=== PATIENT | male | born 1970 | race Caucasian/White ===

== ENCOUNTER → 2018-09-14 08:15 | Outpatient (CLI) | payer OTHER, SELFPAY ==
[2018-09-14 09:39] LABS: Hematocrit 42.3 % (41-53); Hemoglobin 14.1 g/dL (13.5-17.5); Mean Corpuscular HGB Conc 33.3 % (30-36); Mean Corpuscular Hemoglobin 27.3 PG (26-34); Mean Corpuscular Volume 81.9 fL (80-100); Platelet Count 196 X10^3/uL (150-400); Red Blood Cell Count 5.17 X10^6/uL (4.5-5.9); Red Cell Distribution Width 15.6 % (11.6-14.8); White Blood Cell Count 5.6 X10^3/uL (4.5-11.0)
[2018-09-14 09:47] LABS: Hemoglobin A1C% w Est Avg Glu 5.6 % (4.0-6.0)
[2018-09-14 09:56] LABS: Alanine Aminotransferase 44 IU/L (21-72); Albumin 3.6 g/dL (3.5-5.0); Albumin Globulin Ratio 1.2 (1.0-2.8); Alkaline Phosphatase 82 U/L (38-126); Aspartate Aminotransferase 27 IU/L (17-59); Bilirubin Total 0.6 mg/dL (0.2-1.3); Blood Urea Nitrogen 16 mg/dL (9-20); Calcium 8.6 mg/dL (8.4-10.2); Carbon Dioxide 27 mmol/L (22-32); Chloride 107 mmol/L (98-107); Cholesterol 229 mg/dL (140-199); Estimated Glomerular Filt Rate > 60.0 mL/min (>60); Globulin 2.9 g/dL (1.7-4.1); Glucose 98 mg/dL (70-100); HDL Cholesterol 48 mg/dL (40-60); HEMOLYSIS < 15 (0-50); LDL Cholesterol Calculated 158 mg/dL (<100); Potassium 4.2 mmol/L (3.4-5.1); Sodium 140 mmol/L (137-145); Total Protein 6.5 g/dL (6.3-8.2); Triglycerides 117 mg/dL (35-150)
[2018-09-14 10:58] LABS: Neutrophils Absolute Manual 3528 /uL (3000-5900); Total Cells Counted 100
[2018-09-14 10:59] LABS: Anisocytosis 1+
== END ==
PROVIDERS: Family Provider Family Medicine; PCP Family Medicine; Visit Provider Family Medicine
DX: E78.5 Hyperlipidemia, unspecified (principal); I10 Essential (primary) hypertension; E66.9 Obesity, unspecified
CPT/HCPCS: 36415; 80053; 80061; 83036; 85025

== ENCOUNTER → 2020-11-10 10:00 | Outpatient (CLI) | payer OTHER, SELFPAY ==
[2020-11-10 10:58] LABS: COVID19 -Nasal RAPID Negative (Negative)
== END ==
PROVIDERS: Family Provider Family Medicine; PCP Family Medicine; Visit Provider Physician Assistant
DX: R09.81 Nasal congestion (principal)
CPT/HCPCS: 87635

== ENCOUNTER → 2021-05-16 08:23 | Outpatient (CLI) | payer OTHER, SELFPAY ==
[2021-05-16 10:29] LABS: Add Manual Diff / Slide Review NO; Basophils Absolute Auto 0 /uL (0-100); Basophils Percent Auto 0.8 % (0-2); Eosinophils Absolute Auto 100 /uL (0-450); Eosinophils Percent Auto 1.3 % (2-4); Hematocrit 43.5 % (41-53); Hemoglobin 14.6 g/dL (13.5-17.5); Lymphocytes Absolute Auto 1400 /uL (1100-4500); Lymphocytes Percent Auto 25.9 % (25-40); Mean Corpuscular HGB Conc 33.6 % (30-36); Mean Corpuscular Hemoglobin 27.1 PG (26-34); Mean Corpuscular Volume 80.6 fL (80-100); Monocytes Absolute Auto 500 /uL (0-900); Monocytes Percent Auto 8.6 % (3-14); Neutrophils Absolute Auto 3400 /uL (1500-7000); Neutrophils Percent Auto 63.4 % (50-75); Platelet Count 215 X10^3/uL (150-400); Red Blood Cell Count 5.39 X10^6/uL (4.5-5.9); Red Cell Distribution Width 16.8 % (11.6-14.8); White Blood Cell Count 5.4 X10^3/uL (4.5-11.0)
[2021-05-16 13:39] LABS: Alanine Aminotransferase 32 IU/L (<50); Albumin 3.9 g/dL (3.5-5.0); Albumin Globulin Ratio 1.3 (1.0-2.8); Alkaline Phosphatase 76 U/L (38-126); Aspartate Aminotransferase 27 IU/L (17-59); BUN Creatinine Ratio 14.6 (6-22); Bilirubin Total 0.6 mg/dL (0.2-1.3); Blood Urea Nitrogen 14 mg/dL (9-20); Calcium 9.1 mg/dL (8.4-10.2); Carbon Dioxide 25 mmol/L (22-32); Chloride 109 mmol/L (98-107); Cholesterol 276 mg/dL (140-199); Estimated Glomerular Filt Rate > 60.0 mL/min (>60); Glucose 102 mg/dL (70-100); HDL Cholesterol 63 mg/dL (40-60); HEMOLYSIS < 15 (0-50); LDL Cholesterol Calculated 201 mg/dL (<100); Potassium 3.8 mmol/L (3.4-5.1); Sodium 141 mmol/L (137-145); Total Protein 6.9 g/dL (6.3-8.2); Triglycerides 60 mg/dL (35-150)
[2021-05-16 14:07] LABS: Prostate Specific Antigen Scrn 1.67 ng/mL (0.1-4.0)
[2021-05-16 14:08] LABS: Thyroid Stimulating Hormone 0.838 uIU/mL (0.47-4.68)
[2021-05-16 16:54] LABS: Creatinine Urine Random 84.9 mg/dL
== END ==
PROVIDERS: Family Provider Family Medicine; PCP Family Medicine; Referring Provider Physician Assistant; Visit Provider Physician Assistant
DX: I10 Essential (primary) hypertension (principal); E78.5 Hyperlipidemia, unspecified; Z13.0 Encounter for screening for diseases of the blood and blood-forming organs and certain disorders involving the immune mechanism; Z12.5 Encounter for screening for malignant neoplasm of prostate
CPT/HCPCS: 36415; 80053; 80061; 82043; 82570; 84443; 85025; G0103

== ENCOUNTER → 2021-06-05 10:36 | Outpatient (CLI) | payer OTHER, SELFPAY ==
[2021-06-05 11:02] LABS: COVID19 -Nasal RAPID POSITIVE (Negative)
== END ==
PROVIDERS: Family Provider Family Medicine; PCP Family Medicine; Referring Provider Physician Assistant; Visit Provider Physician Assistant
DX: U07.1 COVID-19 (principal); Z20.822 Contact with and (suspected) exposure to COVID-19; R05.9 Cough, unspecified
CPT/HCPCS: 87635

== ENCOUNTER → 2021-08-03 08:45 | Outpatient (CLI) | payer OTHER, SELFPAY ==
--- NOTE | 2021-08-03 08:47 | DI.RAD.S_ITS ---
PROCEDURE: XR CHEST 2V INDICATIONS: Heart murmur; HTN TECHNIQUE: 2 views of the chest were acquired. COMPARISON: None. FINDINGS: Surgical changes and devices: None. Lungs and pleura: Lungs are clear. No pleural effusions or pneumothorax. Mediastinum: Mediastinal contours are normal. Heart size is normal. Bones and chest wall: No suspicious bony abnormalities. Soft tissues appear unremarkable. IMPRESSION: No acute cardiopulmonary disease. Dictated by: Parish Kovacs LOCATED [facility]IN [facility] Interpreted: Eric Sanchez MD on 08/03/2021 at 16:12 Transcribed by: LEONARDA on 08/03/2021 at 16:12 Approved by: Eric Sanchez M.D. on 08/03/2021 at 17:18
[2021-08-03 10:15] LABS: Cholesterol 259 mg/dL (140-199); Creatinine Urine Random 151.5 mg/dL; HDL Cholesterol 45 mg/dL (40-60); LDL Cholesterol Calculated 181 mg/dL (<100); Triglycerides 166 mg/dL (35-150)
[2021-08-03 10:19] LABS: Microalbumi Creatinin Ratio Ur 41.5 ug/mg CR (<30); Microalbumin Urine Random 6.3 mg/dL (0-1.6)
== END ==
PROVIDERS: Family Provider Family Medicine; PCP Family Medicine; Referring Provider Physician Assistant; Visit Provider Physician Assistant
DX: R01.1 Cardiac murmur, unspecified (principal); I10 Essential (primary) hypertension; E78.5 Hyperlipidemia, unspecified; R80.9 Proteinuria, unspecified
CPT/HCPCS: 36415; 71046; 80061; 82043; 82570

== ENCOUNTER → 2021-09-08 08:08 | Outpatient (CLI) | payer OTHER, SELFPAY ==
--- NOTE | 2021-09-08 08:09 | DI.ECHO.S_ITS ---
[facility]---------+ [facility] +---------+ : : [address] : : : : [id number] : : : : Phone: [phone]+ Echocardiogram Report + + :Name: JABIER SILVA Study Date: 09/08/2021 Height: 66 in : :[facility] ReadingLocation: Weight: 290 lb : : Gender: Male BSA: 2.3 m2 : :: 1970 Age: 51 yrs BP: 172/98 mmHg: :Reason For Study: HEART MURMUR : :Ordering Physician: JOSHUA, : :BESSY Youssef Performed By: Gloria Arana : :Referring: BESSY LEWIS : + + Interpretation Summary 1) Milldy increased left ventricular thickness with normal size, normal wall motion, and normal systolic function (EF 60-65%). 2) Normal right ventricular size and function. 3) Diastolic parameters suggest a pseudonormalization pattern, consistent with probable elevated filling pressures. 4) There is mild aortic stenosis (valve area 1.9cm2, mean gradient 11mmHg). 6) Hypertension present during the study (BP 172/98mmHg). 7) No prior Echo available for comparison. Procedure: A two-dimensional transthoracic echocardiogram with color flow and Doppler was performed. The study quality was technically difficult. There is no prior echocardiogram noted for this patient. The heart rate ranged between 79-95 bpm during the study. Left Ventricle: The left ventricle is normal in size. There is mild concentric left ventricular hypertrophy. The ejection fraction is estimated to be 60-65%. Left ventricular systolic function appears normal without focal wall motion abnormalities. Diastolic parameters suggest a pseudonormalization pattern, consistent with probable elevated filling pressures. Right Ventricle: The right ventricle is normal in size and function. Atria: The left atrium is moderately dilated. Right atrial size is normal. There is no Doppler evidence for an interatrial shunt. Mitral Valve: There is mild mitral annular calcification. The mitral valve leaflets appear mildly thickened, but open well. There is no mitral regurgitation noted. Aortic Valve: The aortic valve is not well visualized. There is moderate aortic valve sclerosis. The aortic valve is slightly calcified. The peak aortic velocity is 2.1 m/sec. The aortic valve mean gradient is 11 mmHg. The calculated aortic valve area is 1.9 cm2. There is mild aortic stenosis. No aortic regurgitation is present. Tricuspid Valve: The tricuspid valve is normal in structure and function. No tricuspid regurgitation. Pulmonary artery pressures cannot be estimated because of the lack of a measurable TR jet velocity but the IVC suggests a CVP of around 3 mmHg. Pulmonic Valve: The pulmonic valve is not well seen, but is grossly normal. There is no pulmonic valvular regurgitation. Great Vessels: The aortic root is normal size. The ascending aorta is normal in size. The IVC is of normal diameter and collapses greater than 50% with a sniff. This suggests a low right atrial pressure of 3 mm Hg. Pericardium/ Pleura There is no pericardial effusion. There is no pleural effusion. MMode/2D Measurements & Calculations LVIDd: 5.5 cm LVOT diam: 2.2 cm LVIDs: 3.8 cm Ao root diam: 3.3 cm FS: 31.1 % asc Aorta Diam: 3.6 cm IVSd: 1.3 cm Ao Arch Diam (Prox Trans): 3.4 cm LVPWd: 1.2 cm LV johnson. diameter/BSA (cm/m^2): 2.3 LV sys. diameter/BSA (cm/m^2): 1.6 LA A2 area: 21.2 cm2 RA long axis: 5.3 cm LA A4 area: 24.8 cm2 RA area: 18.3 cm2 LA length (vol): 5.5 cm RA vol: 53.5 ml LA vol: 81.5 ml RA : 22.8 ml/m2 LA vol index: 34.8 ml/m2 IVC diam: 1.6 cm RVD1 (basal): 3.8 cm RVD2 (mid): 3.1 cm TAPSE: 2.4 cm Doppler Measurements & Calculations Ao V2 max: 210.2 cm/sec LVOT Max Michael: 107.3 cm/sec Ao V2 mean: 151.9 cm/sec LV V1 max P.6 mmHg Ao max P.7 mmHg LV V1 VTI: 19.3 cm Ao mean P.1 mmHg SATISH(I,D): 1.9 cm2 Ao V2 VTI: 38.1 cm SATISH(V,D): 1.9 cm2 sev ratio: 0.51 SATISH indexed to BSA (cm^2/m^2): 0.82 MV E max michael: 102.9 cm/sec PA V2 max: 103.9 cm/sec MV A max michael: 86.1 cm/sec PA V2 mean: 76.7 cm/sec MV E/A: 1.2 PA mean P.6 mmHg Med Peak E' Imchael: 6.8 cm/sec PA pr(Accel): 24.2 mmHg E/E' med: 15.1 Lat Peak E' Michael: 8.6 cm/sec E/E' lat: 12.0 E/e' average: 13.5 MV dec time: 0.17 sec SV(LVOT): 73.0 ml Reading Physician:10:15 AM
== END ==
PROVIDERS: Family Provider Family Medicine; PCP Family Medicine; Referring Provider Physician Assistant; Visit Provider Physician Assistant
DX: I35.0 Nonrheumatic aortic (valve) stenosis (principal); R01.1 Cardiac murmur, unspecified; I10 Essential (primary) hypertension
CPT/HCPCS: 93306

== ENCOUNTER → 2021-09-13 10:28 | Outpatient (CLI) | payer OTHER, SELFPAY ==
[2021-09-13 12:12] LABS: NT-proBNP (BNP-Adult 18+) 126 pg/mL (<125)
== END ==
PROVIDERS: Family Provider Family Medicine; PCP Family Medicine; Referring Provider Physician Assistant; Visit Provider Physician Assistant
DX: I10 Essential (primary) hypertension (principal); R06.00 Dyspnea, unspecified; R60.9 Edema, unspecified
CPT/HCPCS: 36415; 83880

== ENCOUNTER → 2021-10-26 09:41 | Outpatient (CLI) | payer OTHER, MEDICAID, SELFPAY ==
[2021-10-26 10:54] LABS: BUN Creatinine Ratio 17.4 (6-22); Blood Urea Nitrogen 15 mg/dL (9-20); Calcium 8.4 mg/dL (8.4-10.2); Carbon Dioxide 26 mmol/L (22-32); Chloride 107 mmol/L (98-107); Cholesterol 235 mg/dL (140-199); Estimated Glomerular Filt Rate > 60 mL/min (>60); Glucose 124 mg/dL (70-100); HDL Cholesterol 66 mg/dL (40-60); HEMOLYSIS < 15 (0-50); LDL Cholesterol Calculated 155 mg/dL (<100); Potassium 4.3 mmol/L (3.4-5.1); Sodium 137 mmol/L (137-145); Triglycerides 69 mg/dL (35-150)
== END ==
PROVIDERS: Family Provider Family Medicine; PCP Family Medicine; Referring Provider Physician Assistant; Visit Provider Physician Assistant
DX: E78.5 Hyperlipidemia, unspecified (principal); I10 Essential (primary) hypertension
CPT/HCPCS: 36415; 80048; 80061

== ENCOUNTER → 2021-11-08 10:12 | Outpatient (CLI) | payer OTHER, SELFPAY ==
[2021-11-08 11:49] LABS: COVID19 -Nasal RAPID Negative (Negative)
== END ==
PROVIDERS: Family Provider Family Medicine; PCP Family Medicine; Referring Provider Physician Assistant; Visit Provider Physician Assistant
DX: R06.00 Dyspnea, unspecified (principal); I10 Essential (primary) hypertension; E78.5 Hyperlipidemia, unspecified; R01.1 Cardiac murmur, unspecified; R60.9 Edema, unspecified; I35.0 Nonrheumatic aortic (valve) stenosis; Z20.822 Contact with and (suspected) exposure to COVID-19
CPT/HCPCS: 87635

== ENCOUNTER → 2021-11-09 10:25 | Outpatient (CLI) | payer OTHER, MEDICAID, SELFPAY ==
--- NOTE | 2021-11-09 | DI.NM.S_ITS ---
PROCEDURE: NM KALANI PERF SPECT R&S PHARM Rest and pharmacological stress myocardial perfusion SPECT with gated imaging and ejection fraction RADIOPHARMACEUTICAL: 23.8 mCi Tc-99m tetrafosmin IV at rest and 25.6 mCi Tc-99m tetrafosmin IV at peak effect of pharmacological stress. [id number] was performed. INDICATIONS: Dyspnea, unspecified TECHNIQUE: Radiopharmaceutical was injected at peak stress test, and also at rest. SPECT images were obtained. SPECT myocardial perfusion images were displayed in short axis, horizontal long axis, and vertical long axis views. Gated images were reviewed using [employer] software. COMPARISON: None. CARDIAC STRESS: A pharmacologic stress test was performed under the supervision of an attending staff, using an infusion of regadenoson. Hemodynamic data: There is normal blood pressure and heart rate response to pharmacologic stress. Symptoms: The patient denied anginal chest pain. EKG: No diagnostic changes of ischemia; no ectopy. FINDINGS: Raw data: There is good myocardial uptake of radiotracer. No significant motion artifacts. Pwmt-ut-zswnn ratio is 0.33 (normal is less than 0.38 for tetrafosmin tracer). Left ventricle function: Gated images demonstrate normal left ventricular wall thickening. No segmental wall motion abnormalities. No transient ischemic dilation; TID is 1.08 (normal less than 1.3). Left ventricle resting end diastolic volume is 198 mL. Left ventricle stress ejection fraction is 56%; normal range is above 45%. Myocardial perfusion: There is a large size, moderate intensity fixed inferior and apical wall defect with preserved wall motion making this most consistent with diaphragmatic attenuation. No evidence of ischemia or scar. IMPRESSION: Low risk stress test. No evidence of pharmacologic induced ischemia or scar. Increased left ventricular end-diastolic volume of 198 mL with preserved ejection fraction. Dictated by: Cynthia Garcia D.O. on 11/10/2021 at 16:50 Approved by: Cynthia Garcia D.O. on 11/10/2021 at 16:55
--- NOTE | 2021-11-09 11:45 | PM.TREADMILL ---
Cardiac Stress Test Report Referral & Results Date Patient Seen: 11/09/21 Time Patient Seen: 11:45 Requesting provider: Hailee Celis Indication: Dyspnea, mild aortic stenosis Rest ECG: Sinus rhythm with borderline intraventricular conduction delay Procedure Note: After Lexiscan injection had minimal dyspnea but no chest discomfort No significant ST changes No ectopy Hypertensive at baseline Impression: Normal lexiscan stress test Nuclear images pending. Please note: Actual ECG tracings can be found in the PACS system.
== END ==
PROVIDERS: Family Provider Family Medicine; PCP Family Medicine; Referring Provider Physician Assistant; Visit Provider Physician Assistant
DX: R06.00 Dyspnea, unspecified (principal); I35.0 Nonrheumatic aortic (valve) stenosis
CPT/HCPCS: 78452; 93017; A9502; J2785

== ENCOUNTER → 2022-01-26 09:49 | Outpatient (CLI) | payer OTHER, MEDICAID, SELFPAY ==
--- NOTE | 2022-01-26 09:52 | DI.RAD.S_ITS ---
PROCEDURE: XR CHEST 2V INDICATIONS: Dyspnea on exertion, concern for CHF TECHNIQUE: 2 views of the chest were acquired. COMPARISON: [facility], CR, XR CHEST 2V, 08/03/2021, 8:42. FINDINGS: Surgical changes and devices: None. Lungs and pleura: Lungs are clear. No pleural effusions or pneumothorax. Mediastinum: Mediastinal contours are normal. Heart size is normal. Bones and chest wall: No suspicious bony abnormalities. Soft tissues appear unremarkable. IMPRESSION: Stable radiographic evaluation of the chest without acute cardiopulmonary abnormalities or focal airspace disease. Dictated by: Abdoul Garza M.D. on 01/26/2022 at 12:00 Approved by: Abdoul Garza M.D. on 01/26/2022 at 12:01
[2022-01-26 12:51] LABS: Blood Urea Nitrogen 13 mg/dL (9-20); Carbon Dioxide 25 mmol/L (22-32); Chloride 109 mmol/L (98-107); Cholesterol 287 mg/dL (140-199); Estimated Glomerular Filt Rate > 60 mL/min (>60); Glucose 97 mg/dL (70-100); HDL Cholesterol 46 mg/dL (40-60); HEMOLYSIS < 15 (0-50); LDL Cholesterol Calculated 218 mg/dL (<100); Potassium 4.4 mmol/L (3.4-5.1); Sodium 140 mmol/L (137-145); Triglycerides 113 mg/dL (35-150)
[2022-01-26 12:57] LABS: NT-proBNP (BNP-Adult 18+) 95 pg/mL (<125)
== END ==
PROVIDERS: Family Provider Family Medicine; PCP Family Medicine; Referring Provider Physician Assistant; Visit Provider Physician Assistant
DX: I35.0 Nonrheumatic aortic (valve) stenosis (principal); R06.00 Dyspnea, unspecified; I10 Essential (primary) hypertension; E78.5 Hyperlipidemia, unspecified
CPT/HCPCS: 36415; 71046; 80048; 80061; 83880

== ENCOUNTER → 2022-07-17 09:30 | Outpatient (CLI) | payer OTHER, MEDICAID, SELFPAY ==
--- NOTE | 2022-07-17 09:33 | DI.RAD.S_ITS ---
PROCEDURE: XR KNEE RT 3V INDICATIONS: Right knee pain - poss internal derangement vs OA TECHNIQUE: 3 views of the knee were acquired. COMPARISON: None. FINDINGS: Bones: No fractures or dislocations. Severe joint space loss of the medial compartment with associated spurring and subchondral sclerosis. Moderate patellofemoral and mild lateral compartment degenerative changes also demonstrated. Soft tissues: No joint effusion. No suspicious soft tissue calcifications. IMPRESSION: Tricompartmental degenerative changes of the knee, severe at the medial compartment. Dictated by: Eric Singh M.D. on 07/17/2022 at 18:02 Approved by: Eric Singh M.D. on 07/17/2022 at 18:04
--- NOTE | 2022-07-17 09:33 | DI.RAD.S_ITS ---
PROCEDURE: XR ELBOW RT MIN 3V INDICATIONS: Right elbow pain TECHNIQUE: 3 views of the elbow were acquired. COMPARISON: None. FINDINGS: Bones: No fractures or dislocations. No suspicious bony lesions. Possible/equivocal degenerative changes of the radiocapitellar and ulnar trochlear articulations. Soft tissues: No elbow joint effusion. No suspicious soft tissue calcifications. IMPRESSION: No acute osseous abnormality. If symptoms persist, follow-up radiographs and/or CT or MRI may be helpful for further evaluation. Dictated by: Eric Singh M.D. on 07/17/2022 at 18:04 Approved by: Eric Singh M.D. on 07/17/2022 at 18:07
[2022-07-17 10:59] LABS: Add Manual Diff / Slide Review NO; Basophils Absolute Auto 0 /uL (0-100); Basophils Percent Auto 0.8 % (0-2); Eosinophils Absolute Auto 100 /uL (0-450); Eosinophils Percent Auto 1.2 % (2-4); Hemoglobin 13.4 g/dL (13.5-17.5); Lymphocytes Absolute Auto 1600 /uL (1100-4500); Mean Corpuscular HGB Conc 33.5 % (30-36); Mean Corpuscular Hemoglobin 27.4 PG (26-34); Mean Corpuscular Volume 81.6 fL (80-100); Monocytes Absolute Auto 500 /uL (0-900); Monocytes Percent Auto 7.6 % (3-14); Neutrophils Absolute Auto 4200 /uL (1500-7000); Neutrophils Percent Auto 65.4 % (50-75); Platelet Count 216 X10^3/uL (150-400); White Blood Cell Count 6.4 X10^3/uL (4.5-11.0)
[2022-07-17 11:24] LABS: Alanine Aminotransferase 54 IU/L (<50); Albumin 3.7 g/dL (3.5-5.0); Albumin Globulin Ratio 1.2 (1.0-2.8); Alkaline Phosphatase 65 U/L (38-126); Aspartate Aminotransferase 34 IU/L (17-59); BUN Creatinine Ratio 24.7 (6-22); Bilirubin Total 0.6 mg/dL (0.2-1.3); Blood Urea Nitrogen 24 mg/dL (9-20); Calcium 8.9 mg/dL (8.4-10.2); Carbon Dioxide 28 mmol/L (22-32); Chloride 104 mmol/L (98-107); Cholesterol 139 mg/dL (140-199); Estimated Glomerular Filt Rate > 60 mL/min (>60); Globulin 3.1 g/dL (1.7-4.1); Glucose 108 mg/dL (70-100); HDL Cholesterol 47 mg/dL (40-60); HEMOLYSIS < 15 (0-50); LDL Cholesterol Calculated 82 mg/dL (<100); Potassium 3.8 mmol/L (3.4-5.1); Sodium 139 mmol/L (137-145); Total Protein 6.8 g/dL (6.3-8.2); Triglycerides 52 mg/dL (35-150)
[2022-07-17 11:55] LABS: TSH w/ Reflex to FT4 0.73 uIU/mL (0.47-4.68)
== END ==
PROVIDERS: Family Provider Family Medicine; PCP Family Medicine; Referring Provider Physician Assistant; Visit Provider Physician Assistant
DX: M25.561 Pain in right knee (principal); M25.521 Pain in right elbow; E78.5 Hyperlipidemia, unspecified; I10 Essential (primary) hypertension
CPT/HCPCS: 36415; 73080; 73562; 80053; 80061; 84443; 85025

== ENCOUNTER → 2023-01-17 07:55 | Outpatient (CLI) | payer OTHER, MEDICAID, SELFPAY ==
[2023-01-17 08:27] LABS: Add Manual Diff / Slide Review NO; Basophils Absolute Auto 0 /uL (0-100); Basophils Percent Auto 0.6 % (0-2); Eosinophils Absolute Auto 0 /uL (0-450); Eosinophils Percent Auto 0.5 % (2-4); Hemoglobin 14.1 g/dL (13.5-17.5); Lymphocytes Absolute Auto 1600 /uL (1100-4500); Lymphocytes Percent Auto 27.9 % (25-40); Mean Corpuscular HGB Conc 34.3 % (30-36); Mean Corpuscular Hemoglobin 27.4 PG (26-34); Monocytes Absolute Auto 600 /uL (0-900); Monocytes Percent Auto 10.8 % (3-14); Neutrophils Absolute Auto 3500 /uL (1500-7000); Neutrophils Percent Auto 60.2 % (50-75); Platelet Count 208 X10^3/uL (150-400); Red Blood Cell Count 5.13 X10^6/uL (4.5-5.9); Red Cell Distribution Width 15.7 % (11.6-14.8); White Blood Cell Count 5.8 X10^3/uL (4.5-11.0)
[2023-01-17 08:39] LABS: Alanine Aminotransferase 41 IU/L (<50); Albumin 3.9 g/dL (3.5-5.0); Albumin Globulin Ratio 1.6 (1.0-2.8); Alkaline Phosphatase 55 U/L (38-126); Aspartate Aminotransferase 26 IU/L (17-59); BUN Creatinine Ratio 21.9 (6-22); Bilirubin Total 0.8 mg/dL (0.2-1.3); Blood Urea Nitrogen 23 mg/dL (9-20); Calcium 9.3 mg/dL (8.4-10.2); Carbon Dioxide 30 mmol/L (22-32); Chloride 102 mmol/L (98-107); Cholesterol 125 mg/dL (140-199); Estimated Glomerular Filt Rate > 60 mL/min (>60); Globulin 2.4 g/dL (1.7-4.1); Glucose 95 mg/dL (70-100); HDL Cholesterol 38 mg/dL (40-60); HEMOLYSIS < 15 (0-50); LDL Cholesterol Calculated 70 mg/dL (<100); Potassium 3.3 mmol/L (3.4-5.1); Sodium 139 mmol/L (137-145); Total Protein 6.3 g/dL (6.3-8.2); Triglycerides 86 mg/dL (35-150)
[2023-01-17 09:09] LABS: Thyroid Stimulating Hormone 1.14 uIU/mL (0.47-4.68)
[2023-01-18 03:03] LABS: x Labcorp Estim. Avg Glu (eAG) 114 mg/dL (.); x Labcorp Hemoglobin A1c 5.6 % (4.8-5.6)
== END ==
PROVIDERS: Family Provider Family Medicine; PCP Family Medicine; Referring Provider Physician Assistant; Visit Provider Physician Assistant
DX: E78.5 Hyperlipidemia, unspecified (principal); I10 Essential (primary) hypertension; I35.0 Nonrheumatic aortic (valve) stenosis; R73.01 Impaired fasting glucose
CPT/HCPCS: 36415; 80053; 80061; 83036; 84443; 85025

== ENCOUNTER → 2023-10-10 08:24 | Outpatient (CLI) | payer OTHER, MEDICAID, SELFPAY ==
[2023-10-10 08:56] LABS: Add Manual Diff / Slide Review NO; Basophils Absolute Auto 100 /uL (0-100); Eosinophils Absolute Auto 0 /uL (0-450); Eosinophils Percent Auto 0.8 % (2-4); Hematocrit 43.2 % (41-53); Hemoglobin 14.6 g/dL (13.5-17.5); Lymphocytes Absolute Auto 1400 /uL (1100-4500); Lymphocytes Percent Auto 26.2 % (25-40); Mean Corpuscular HGB Conc 33.8 % (30-36); Mean Corpuscular Hemoglobin 27.5 PG (26-34); Mean Corpuscular Volume 81.3 fL (80-100); Monocytes Absolute Auto 600 /uL (0-900); Neutrophils Absolute Auto 3400 /uL (1500-7000); Platelet Count 222 X10^3/uL (150-400); Red Blood Cell Count 5.31 X10^6/uL (4.5-5.9); Red Cell Distribution Width 15.1 % (11.6-14.8); White Blood Cell Count 5.5 X10^3/uL (4.5-11.0)
[2023-10-10 09:02] LABS: Alanine Aminotransferase 45 IU/L (<50); Albumin Globulin Ratio 1.5 (1.0-2.8); Alkaline Phosphatase 60 U/L (38-126); Aspartate Aminotransferase 30 IU/L (17-59); BUN Creatinine Ratio 20.9 (6-22); Bilirubin Total 0.9 mg/dL (0.2-1.3); Blood Urea Nitrogen 23 mg/dL (9-20); Calcium 8.8 mg/dL (8.4-10.2); Carbon Dioxide 29 mmol/L (22-32); Chloride 106 mmol/L (98-107); Cholesterol 133 mg/dL (140-199); Estimated Glomerular Filt Rate > 60 mL/min (>60); Globulin 2.6 g/dL (1.7-4.1); Glucose 111 mg/dL (70-100); HDL Cholesterol 46 mg/dL (40-60); HEMOLYSIS < 15 (0-50); LDL Cholesterol Calculated 69 mg/dL (<100); Potassium 3.3 mmol/L (3.4-5.1); Sodium 138 mmol/L (137-145); Total Protein 6.6 g/dL (6.3-8.2); Triglycerides 88 mg/dL (35-150)
[2023-10-10 09:29] LABS: TSH w/ Reflex to FT4 0.55 uIU/mL (0.47-4.68)
== END ==
PROVIDERS: Family Provider Family Medicine; PCP Family Medicine; Referring Provider Family Medicine; Visit Provider Family Medicine
DX: E78.5 Hyperlipidemia, unspecified (principal); I10 Essential (primary) hypertension; E66.01 Morbid (severe) obesity due to excess calories; Z68.41 Body mass index [BMI] 40.0-44.9, adult; Z79.899 Other long term (current) drug therapy
CPT/HCPCS: 36415; 80053; 80061; 84443; 85025

== ENCOUNTER 2023-10-25 07:49 | Day surgery (SDC) | payer OTHER, MEDICAID, SELFPAY ==
--- NOTE | 2023-10-25 | PATH_ITS ---
[facility] Accession Number: [id number] No. of containers..01 Tissue . 01 Material submitted: . colon - RECTAL POLYP . 01 Diagnosis: RECTAL POLYP: Tubular adenoma. MRV 10/31/2023 1640 Local . 01 Electronically signed: . Alex Georges MD, PhD, Pathologist NPI- [id number] . 01 Gross description: . RECTAL POLYP: Received in formalin is 1 fragment(s) of pastor, soft tissue measuring 0.8 x 0.5 x 0.5 cm submitted entirely in 1 cassette(s) /ANIBAL 10/30/2023 1758 Local . 01 Pathologist provided ICD-10: D12.8 . 01 CPT . 248722 Specimen Comment: A courtesy copy of this report has been sent to [phone] Performed at: [address] [facility] [id number] MD Andrew Silva MD Phone: [phone]
[2023-10-25 08:22] VITALS: BP 180/98; PULSE 87; RESP 18; TEMP 36.8; O2SAT 95
--- NOTE | 2023-10-25 08:36 | PM.HP.1 ---
History of Present Illness History of Present Illness Date Patient Seen: 10/25/23 Time Patient Seen: 08:36 Chief complaint: Colonoscopy Narrative: Gerber is a 53-year-old man who is here for colonoscopy. He has never had 1 before. No family history of colon cancer. No bowel complaints. [facility] Medical History (Updated 10/25/23 @ 08:37 by Gaudencio Phillips MD) Non-compliant behavior Morbid obesity with BMI of 50.0-59.9, adult Morbid obesity with body mass index (BMI) of 40.0 to 44.9 in adult Heart murmur Upper respiratory infection Social History marital status: unmarried,single Smoking Status: Never smoker alcohol intake: former substance use type: does not use Meds Home Medications and Allergies Home Medications Medication Instructions Recorded Confirmed Type aspirin 81 mg tablet,delayed 81 mg PO DAILY 06/19/18 10/25/23 History release (Adult Aspirin Regimen) rosuvastatin 20 mg tablet 20 mg PO DAILY #90 tabs 08/17/22 10/25/23 Rx losartan 100 1 tab PO QDAY #90 tabs 11/13/22 10/25/23 Rx mg-hydrochlorothiazide 25 mg tablet (Hyzaar) amlodipine 5 mg tablet 5 mg PO DAILY #90 tabs 11/16/22 10/25/23 Rx meclizine 25 mg tablet 25 mg PO TID PRN dizziness #30 tabs 10/17/23 10/25/23 Rx Allergies Allergy/AdvReac Type Severity Reaction Status Date / Time Penicillins [PENICILLINS] Allergy Severe RASH Verified 10/25/23 08:17 lisinopril [LISINOPRIL] Allergy Mild COUGH Verified 10/25/23 08:17 Exam Vital Signs (past 8 hours): - 10/25/23 08:22 Temperature 98.3 F Pulse Rate 87 Respiratory Rate 18 Blood Pressure 180/98 H Pulse Oximetry 95 Oxygen Delivery Method Room Air Oxygen Delivery Method Room Air Const General: No acute distress Resp Effort & Inspection: normal respiratory effort Assessment & Plan Assessment and plan (1) Colon cancer screening: Status: Acute Plan We reviewed the risks and benefits of colonoscopy for colon cancer screening and he would like to proceed.
[2023-10-25 09:15] VITALS: BP 100/62; PULSE 66; RESP 15; TEMP 36.3; O2SAT 94
--- NOTE | 2023-10-25 09:17 | PM.OP.COLON ---
Operative Date/Time/Diagnoses Date of procedure: 10/25/23 Time of procedure: 09:18 Pre-op diagnosis: Colon cancer screening Post-op diagnosis: same Procedure & Clinicians Study performed: Colonoscopy Same procedure as scheduled: Yes Surgeon: Gaudencio Phillips Procedure Notes Procedure in detail: Surgeon: Gaudencio Phillips MD Anesthesia: Amy Todd MD Procedure: The patient was brought to the endoscopy suite, placed in left lateral decubitus position. The patient was connected to monitoring devices. A time-out was performed. Sedation was administered. Once the patient was adequately sedated, a digital rectal exam was performed and was normal. The scope was then inserted and advanced to the cecum where the appendiceal orifice was identified and photographed. The scope was then slowly withdrawn over greater than 6 minutes. The mucosa was thoroughly inspected. There was a 7 mm polyp in the mid rectum removed with a cold snare. The scope was retroflexed in the rectum. No other abnormalities were noted. The scope was straightened and removed. The patient was awakened and brought to recovery. Scope withdrawal time: 11 minutes Sedation time: 17 minutes EBL: 3 mL Findings: Rectal polyp Post-procedure Disposition: PACU
[2023-10-25 09:20] VITALS: BP 123/79; PULSE 60; RESP 16; O2SAT 96
[2023-10-25 09:25] VITALS: BP 124/83; PULSE 54; RESP 16; TEMP 36.3; O2SAT 97
== END 2023-10-25 09:38 | disposition home or self-care (01) ==
PROVIDERS: Family Provider Family Medicine; PCP Family Medicine; Referring Provider Surgery; Visit Provider Surgery
PROC: 0DJD8ZZ Inspection of Lower Intestinal Tract, Via Natural or Artificial Opening Endoscopic (ICD-10-PCS; CPT 45378; principal; 2023-10-25 08:45)
DX: Z12.11 Encounter for screening for malignant neoplasm of colon (principal); D12.8 Benign neoplasm of rectum
CPT/HCPCS: 45385; J2704

== ENCOUNTER → 2023-11-07 12:48 | Outpatient (CLI) | payer OTHER, MEDICAID, SELFPAY ==
--- NOTE | 2023-11-16 15:00 | DIET.OUTPTC ---
Dietary Outpatient Consultation Note Consultation Date: 11/07/2023 Assessment: 53 y M referred to dietitian for E66.01 - Morbid (severe) obesity due to excess calories, E78.5 - Hyperlipidemia, unspecified, I10 - Essential (primary) hypertension, I35.0 - Nonrheumatic aortic (valve) stenosis, R73.03 - Prediabetes, Z68.41 - Body mass index [BMI] 40.0-44.9, adult. Gerber reports following meal plans from [employer] and getting weekly weigh ins. Per chart review - pt stopped following diet d/t recc from psychiatrist for diet being too restrictive. Pt forgot to bring diet plan outline to session, diet recall provided, reports still following plan. He is wanting help loosing weight to help with knee pain/support proceeding for bilateral knee replacement. Also wants to add more variety to his meals, tired of same meals. Diet recall: B-eggs, sausage, hashbrowns, OR oatmeal OR yogurt and blueberries and honey; coffee black 12 oz x2 L-snacks when working (cottage cheese and hard boiled eggs) or when not working: chicken or lean bison meat, rice, corn/peas/carrot mixed veg D-chicken or lean bison meat (90%) or canned tuna, rice, corn/peas/carrot mixed veg or hamburger or steaks Night snack: 14 ritz crackers and cheese sliced Chocolate bar 2x/wk Drinks: 7 16.9 fl oz bottles of water/day Main meal lasts 4 days. Is not confident using the oven to cook. Uses instant rice microwavable package, was doing 2-3 packs for 4 days. Has cut back to just 2. Activity: Steps at work - 4 hr shifts 3-4x/wk Ht: 5 ft 6 in (167.64 cm) Wt: 280 lb 2 oz (127 kg) BMI: 45.2 Weight History: 10/25/23: 127 kg 03/22/23: 117.48 kg 11/16/22: 120.769 kg 2021: ranges 144-124 kg Related Labs: 5.6 A1c on 01/17/23, 133 chol on 10/10/23 Nutrition Diagnosis: Obesity r/t excessive energy intake aeb BMI 45.2 Interventions: 1. Balanced meals/plate method -Increased non-starchy vegs portions/fiber intake, provided list, set goals -Portion sizing w/ references -Label reading 2. Cooking methods -Discussed 1 new way to prepare food, discussed ways to prepare non-starchy vegs Goals: 1. 1 extra serving of non-starchy vegetables in prepared meals 2. Consistent 1 c fruit serving at breakfast 3. Portion and pairing sweets Monitoring/Evaluations: [facility] Wellness diet plan review, diet recall, weight, goals F/u in 1 month Electronically Signed by: Gerri Graham 11/16/23 15:00 Clinical Dietitian [address] [address]
== END ==
PROVIDERS: Family Provider Family Medicine; PCP Family Medicine; Referring Provider Family Medicine
DX: E66.01 Morbid (severe) obesity due to excess calories (principal); E78.5 Hyperlipidemia, unspecified; I10 Essential (primary) hypertension; I35.0 Nonrheumatic aortic (valve) stenosis; R73.03 Prediabetes; Z68.41 Body mass index [BMI] 40.0-44.9, adult; Z71.3 Dietary counseling and surveillance
CPT/HCPCS: 97802

== ENCOUNTER → 2023-12-05 12:44 | Outpatient (CLI) | payer OTHER, MEDICAID, SELFPAY ==
--- NOTE | 2023-12-05 15:44 | DIET.OUTPTC ---
Dietary Outpatient Consultation Note Consultation Date: 12/05/2023 Assessment: 53 y M referred to dietitian for E66.01 - Morbid (severe) obesity due to excess calories, E78.5 - Hyperlipidemia, unspecified, I10 - Essential (primary) hypertension, I35.0 - Nonrheumatic aortic (valve) stenosis, R73.03 - Prediabetes, Z68.41 - Body mass index [BMI] 40.0-44.9, adult. Nutrition f/u. Gerber brought in meal plans from [facility] and is getting weekly weigh ins. Per chart review - pt stopped following diet d/t recc from psychiatrist for diet being too restrictive. Discussed diet further with pt. He reports phase 1 of diet plan was too restrictive. He is now on phase 3, which is less restrictive. Meal plan for phase 3 per [facility] are as follows: 9 servings protein, 9 servings fat, 25 g net carbs Servings unclear. Diet recall taken below and assessed for adequacy. Pt is following modified plan that meets adequate energy and protein needs. Pt reports he is satiated after meals. Nutrition interventions in progress to further align diet with pt goals while meeting needs. Diet recall: B-eggs x4, sausage links x6, OR oatmeal 2 instant packets w/ /4 c blueberries OR yogurt and blueberries and honey; coffee black 12 oz x2 L-cottage cheese and hard boiled eggs OR 14 ritz crackers and cheese sliced D-chicken or lean bison meat (90%) or canned tuna, rice (2 packets last 4 days), corn/peas/carrot mixed veg + canned tomatoes or hamburger or steaks 2x/wk Instead of dessert will do blueberries if craving sweets He continues to use only 2 rice packets with dinner, has added more non-starchy veg at dinner. Drinks: 100 oz/d Activity: Steps at work - 4 hr shifts 3-4x/wk Ht: 5 ft 6 in (167.64 cm) Wt: 280 lb 2 oz (127 kg) BMI: 45.2 Weight History: 11/29/23: 123.45 kg (2.8% weight loss in 1 month) 10/25/23: 127 kg 03/22/23: 117.48 kg 11/16/22: 120.769 kg 2021: ranges 144-124 kg Related Labs: 5.6 A1c on 01/17/23, 133 chol on 10/10/23 Nutrition Diagnosis: Nutrition related knowledge deficit r/t limited previous nutrition educ aeb assessment Interventions: 1. Balanced meals/plate method -Label reading for fiber and saturated fat content reviewed -Adequate fiber intake Goals: 1. Lower saturated fat sausage (turkey) 3-4 links + serving of Amy's yogurt (8g protein, 1.5% milkfat) 2. Consistent 1 c fruit serving at breakfast or additional serving of fruit at lunch Monitoring/Evaluations: diet recall, weight, goals, labs F/u in 1 month Electronically Signed by: Gerri Graham 12/05/23 15:44 Clinical Dietitian [address] [address]
== END ==
PROVIDERS: Family Provider Family Medicine; PCP Family Medicine; Referring Provider Family Medicine
DX: E66.01 Morbid (severe) obesity due to excess calories (principal); E78.5 Hyperlipidemia, unspecified; I10 Essential (primary) hypertension; I35.0 Nonrheumatic aortic (valve) stenosis; R73.03 Prediabetes; Z68.41 Body mass index [BMI] 40.0-44.9, adult; Z71.3 Dietary counseling and surveillance
CPT/HCPCS: 97803

== ENCOUNTER → 2024-01-17 15:55 | Outpatient (CLI) | payer OTHER, MEDICAID, SELFPAY ==
--- NOTE | 2024-01-21 15:39 | DIET.PN1 ---
Addendum entered by Gerri Graham 01/21/24 16:09: correction- *BMI now 42.9, not 45.2 listed below Original Note: Dietary Progress Note Consultation Date: 12/05/2023 Assessment: 53 y M referred to dietitian for E66.01 - Morbid (severe) obesity due to excess calories, E78.5 - Hyperlipidemia, unspecified, I10 - Essential (primary) hypertension, I35.0 - Nonrheumatic aortic (valve) stenosis, R73.03 - Prediabetes, Z68.41 - Body mass index [BMI] 40.0-44.9, adult. Nutrition f/u. Pt attempted to call sister to loop her into session via phone. Pt unable to reach. Pt has my business card, encouraged to contact with any questions/concerns. Gerber switched to turkey sausage in morning, lower in saturated fat. Identified saturated fat content using label reading skills provided in previous session. Is satisfied w/ switch. Discussed other food products he uses and reviewed labels. Discussed recipe resources and other recipe options. Pt interested in trying a few new recipes from cookbook. Pt reports continued satisfaction after meals. Pt continues to go to [facility] for weigh-ins weekly. Diet recall and activity remains same except changes noted above. Ht: 5 ft 6 in (167.64 cm) Wt: 266 lb BMI: 45.2 Weight History: 01/17/24: 120.9 kg (4.8% weight loss in 3 months) 11/29/23: 123.45 kg (2.8% weight loss in 1 month) 10/25/23: 127 kg 03/22/23: 117.48 kg 11/16/22: 120.769 kg 2021: ranges 144-124 kg Related Labs: 5.6 A1c on 01/17/23, 133 chol on 10/10/23 Nutrition Diagnosis: (*initial) Nutrition related knowledge deficit r/t limited previous nutrition educ aeb assessment Interventions: 1. Continue current plan Goals: 1. Trial new recipes 2. Consistent 1 c fruit serving at breakfast, additional serving of fruit at lunch Monitoring/Evaluations: diet recall, weight, goals, labs F/u in 1 month Electronically Signed by: Gerri Graham 01/21/24 15:39 Clinical Dietitian [address] [address]
== END ==
PROVIDERS: Family Provider Family Medicine; PCP Family Medicine; Referring Provider Family Medicine
DX: E66.01 Morbid (severe) obesity due to excess calories (principal); E78.5 Hyperlipidemia, unspecified; I10 Essential (primary) hypertension; I35.0 Nonrheumatic aortic (valve) stenosis; R73.03 Prediabetes; Z68.41 Body mass index [BMI] 40.0-44.9, adult; Z71.3 Dietary counseling and surveillance
CPT/HCPCS: 97803

== ENCOUNTER → 2024-02-11 07:56 | Outpatient (CLI) | payer OTHER, MEDICAID, SELFPAY ==
[2024-02-11 09:09] LABS: Add Manual Diff / Slide Review NO; Basophils Absolute Auto 0 /uL (0-100); Basophils Percent Auto 0.6 % (0-2); Eosinophils Absolute Auto 100 /uL (0-450); Eosinophils Percent Auto 1.8 % (2-4); Hematocrit 42.9 % (41-53); Hemoglobin 14.4 g/dL (13.5-17.5); Lymphocytes Absolute Auto 1600 /uL (1100-4500); Lymphocytes Percent Auto 26.2 % (25-40); Mean Corpuscular HGB Conc 33.6 % (30-36); Mean Corpuscular Hemoglobin 27.5 PG (26-34); Mean Corpuscular Volume 81.9 fL (80-100); Monocytes Absolute Auto 600 /uL (0-900); Monocytes Percent Auto 9.9 % (3-14); Neutrophils Absolute Auto 3700 /uL (1500-7000); Neutrophils Percent Auto 61.5 % (50-75); Platelet Count 202 X10^3/uL (150-400); Red Blood Cell Count 5.25 X10^6/uL (4.5-5.9); Red Cell Distribution Width 15.4 % (11.6-14.8)
[2024-02-11 09:24] LABS: Hemoglobin A1C% w Est Avg Glu 5.7 % (4.0-6.0)
[2024-02-11 09:46] LABS: Alanine Aminotransferase 41 IU/L (<50); Albumin 3.7 g/dL (3.5-5.0); Albumin Globulin Ratio 1.5 (1.0-2.8); Alkaline Phosphatase 68 U/L (38-126); Aspartate Aminotransferase 29 IU/L (17-59); BUN Creatinine Ratio 17.1 (6-22); Bilirubin Total 0.8 mg/dL (0.2-1.3); Blood Urea Nitrogen 18 mg/dL (9-20); Calcium 9.3 mg/dL (8.4-10.2); Carbon Dioxide 26 mmol/L (22-32); Chloride 105 mmol/L (98-107); Cholesterol 181 mg/dL (140-199); Estimated Glomerular Filt Rate > 60 mL/min (>60); Globulin 2.5 g/dL (1.7-4.1); Glucose 117 mg/dL (70-100); HDL Cholesterol 48 mg/dL (40-60); HEMOLYSIS < 15 (0-50); LDL Cholesterol Calculated 113 mg/dL (<100); Potassium 3.6 mmol/L (3.4-5.1); Sodium 138 mmol/L (137-145); Total Protein 6.2 g/dL (6.3-8.2); Triglycerides 101 mg/dL (35-150)
[2024-02-11 10:16] LABS: TSH w/ Reflex to FT4 1.02 uIU/mL (0.47-4.68)
[2024-02-11 10:17] LABS: Prostate Specific Antigen Scrn 1.92 ng/mL (0.1-4.0)
== END ==
PROVIDERS: Family Provider Family Medicine; PCP Family Medicine; Referring Provider Physician Assistant; Visit Provider Physician Assistant
DX: I10 Essential (primary) hypertension (principal); E78.5 Hyperlipidemia, unspecified; R80.9 Proteinuria, unspecified; R73.01 Impaired fasting glucose; Z12.5 Encounter for screening for malignant neoplasm of prostate
CPT/HCPCS: 36415; 80053; 80061; 83036; 84443; 85025; G0103

== ENCOUNTER → 2024-02-21 15:37 | Outpatient (CLI) | payer OTHER, MEDICAID, SELFPAY ==
--- NOTE | 2024-03-03 15:09 | DIET.OUTPTC ---
Dietary Outpatient Consultation Note Consultation Date: 02/21/2024 Assessment: 53 y M referred to dietitian for E66.01 - Morbid (severe) obesity due to excess calories, E78.5 - Hyperlipidemia, unspecified, I10 - Essential (primary) hypertension, I35.0 - Nonrheumatic aortic (valve) stenosis, R73.03 - Prediabetes, Z68.41 - Body mass index [BMI] 40.0-44.9, adult. Nutrition f/u. Reports difficulty within the last month avoiding sweets. Sees items while bagging groceries that trigger cravings for sweets, i.e reports drinking sweetened egg nog and eating chocolates. This week at [facility]- weigh-in was 280.6 lb or 127.55 kg. 127 kg was starting weight in October. Related Labs: 5.7 A1c on 02/11/24, 113 LDL on 02/11/24. A1c 5.6% last year. Ht: 5 ft 6 in (167.64 cm) Wt: 280.6 lb BMI: 43.9 Weight History: 02/25/24: 127.5 kg 01/17/24: 120.9 kg (4.8% weight loss in 3 months) 11/29/23: 123.45 kg (2.8% weight loss in 1 month) 10/25/23: 127 kg 03/22/23: 117.48 kg 11/16/22: 120.769 kg 2021: ranges 144-124 kg Interventions: 1. Reviewed diet recall, made adjustments to reduce added sugars in morning - reduced sugar instant oatmeal or homemade oatmeal from container 2. Discussed management of cravings i.e sweets in moderation, pairing sweets for balanced snack, hunger/fullness scale 3. Provided information on cooking class available per pt interest 4. Encouraged goal of trying new recipe from cook book again Monitoring/Evaluations: diet recall, weight Electronically Signed by: Gerri Graham 03/03/24 15:09 Clinical Dietitian [address] [id number]
== END ==
PROVIDERS: Family Provider Family Medicine; PCP Family Medicine; Referring Provider Family Medicine
DX: E66.01 Morbid (severe) obesity due to excess calories (principal); E78.5 Hyperlipidemia, unspecified; I10 Essential (primary) hypertension; I35.0 Nonrheumatic aortic (valve) stenosis; R73.03 Prediabetes; Z68.41 Body mass index [BMI] 40.0-44.9, adult
CPT/HCPCS: 97803

== ENCOUNTER → 2024-04-02 15:50 | Outpatient (CLI) | payer OTHER, MEDICAID, SELFPAY ==
--- NOTE | 2024-04-02 15:55 | DIET.OUTPTC ---
Dietary Outpatient Consultation Note Consultation Date: 04/02/2024 Assessment: 53 y M referred to dietitian for E66.01 - Morbid (severe) obesity due to excess calories, E78.5 - Hyperlipidemia, unspecified, I10 - Essential (primary) hypertension, I35.0 - Nonrheumatic aortic (valve) stenosis, R73.03 - Prediabetes, Z68.41 - Body mass index [BMI] 40.0-44.9, adult. Nutrition f/u. Brought in cookbook to review. Reviewed content of recipes together. Reports has been staying away from sweets/desserts. Will do yogurt in place. Open to doing more movement. Diet recall: B- 3x/wk: 3-4 eggs, turkey breaux Other days- oatmeal w/ blueberries (24 g added sugar) L-2 hardboiled eggs D-1 c rice with nonstarchy veg/chicken dish OR 1-2x/wk has 4-6 oz lean steak or 2 cans of tuna/salmon with veg post dinner snack- 1 carton leobardo's plain yogurt with 1 tbsp honey (17 g sugar) and blueberries Last week at [facility]- weigh-in was 270 lb or 122.7 kg. Pt reports this weight to me. Did not have SPIRE sheet at today's session, is going for weekly weigh in tomorrow. Related Labs: 5.7 A1c on 02/11/24, 113 LDL on 02/11/24. A1c 5.6% last year. Ht: 5 ft 6 in (167.64 cm) Wt: 280.6 lb BMI: 43.9 Weight History: 03/26/24 122.7 kg (3.5% weight loss since 10/2022) 02/25/24: 127.5 kg 01/17/24: 120.9 kg (4.8% weight loss in 3 months) 11/29/23: 123.45 kg (2.8% weight loss in 1 month) 10/25/23: 127 kg 03/22/23: 117.48 kg 11/16/22: 120.769 kg 2021: ranges 144-124 kg Interventions: 1. Reviewed diet recalls and recipes from cookbook, assessing nutritional content together 2. Discussed starting low impact physical activity 3. Discussed sodium content of foods, added sodium, label reading for sodium Goal-20-30 minutes movement 3x/wk low impact or per physician's recommendations Monitoring/Evaluations: diet recall, weight Electronically Signed by: Gerri Graham 04/02/24 15:55 Clinical Dietitian [address] [address]
== END ==
PROVIDERS: Family Provider Family Medicine; PCP Family Medicine; Referring Provider Family Medicine
DX: E66.01 Morbid (severe) obesity due to excess calories (principal); E78.5 Hyperlipidemia, unspecified; I10 Essential (primary) hypertension; I35.0 Nonrheumatic aortic (valve) stenosis; R73.03 Prediabetes; Z68.41 Body mass index [BMI] 40.0-44.9, adult
CPT/HCPCS: 97803

== ENCOUNTER → 2024-07-02 12:46 | Outpatient (CLI) | payer OTHER, SELFPAY ==
--- NOTE | 2024-07-02 13:50 | DIET.OUTPTC ---
Dietary Outpatient Consultation Note Consultation Date: 07/02/2024 Assessment: 53 y M referred to dietitian for E66.01 - Morbid (severe) obesity due to excess calories, E78.5 - Hyperlipidemia, unspecified, I10 - Essential (primary) hypertension, I35.0 - Nonrheumatic aortic (valve) stenosis, R73.03 - Prediabetes, Z68.41 - Body mass index [BMI] 40.0-44.9, adult. Nutrition f/u. Did not start activity yet. Barriers include not getting enough sleep d/t being on phone late at night and colder weather. Would like to start reducing phone time and including activity. Per patient's phone screen time is 8-9 hours daily average. Per weight recall from patient's weekly weigh ins, pt reports staying around 280 lb. Ht: 5 ft 6 in (167.64 cm) Wt: 280 lb BMI: 43.9 Weight History: 03/26/24 122.7 kg (3.5% weight loss since 10/2022) 02/25/24: 127.5 kg 01/17/24: 120.9 kg (4.8% weight loss in 3 months) 11/29/23: 123.45 kg (2.8% weight loss in 1 month) 10/25/23: 127 kg 03/22/23: 117.48 kg 11/16/22: 120.769 kg 2021: ranges 144-124 kg Interventions: 1. 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 Provided handouts on chair exercises, activity intensity levels, activity trackers and goals Goals 1. Chair exercises 3x/wk for 15-20 minutes, walk out to gate 1-2x/wk (10 minutes) 2. Sleep by 10:30p on work day nights 3. Vegetables back into dinner time Monitoring/Evaluations: diet recall, weight, goals, f/u in 1 month Electronically Signed by: Gerri Graham 07/02/24 13:50 Clinical Dietitian [address] [address]
== END ==
PROVIDERS: Family Provider Family Medicine; PCP Family Medicine; Referring Provider Family Medicine
DX: E66.01 Morbid (severe) obesity due to excess calories (principal); E78.5 Hyperlipidemia, unspecified; I10 Essential (primary) hypertension; I35.0 Nonrheumatic aortic (valve) stenosis; R73.03 Prediabetes; Z68.41 Body mass index [BMI] 40.0-44.9, adult; Z71.3 Dietary counseling and surveillance
CPT/HCPCS: 97803

== ENCOUNTER → 2024-08-13 15:19 | Outpatient (CLI) | payer OTHER, SELFPAY ==
--- NOTE | 2024-08-13 16:15 | DIET.OUTPTC ---
Dietary Outpatient Consultation Note Consultation Date: 08/13/2024 Assessment: 53 y M referred to dietitian for E66.01 - Morbid (severe) obesity due to excess calories, E78.5 - Hyperlipidemia, unspecified, I10 - Essential (primary) hypertension, I35.0 - Nonrheumatic aortic (valve) stenosis, R73.03 - Prediabetes, Z68.41 - Body mass index [BMI] 40.0-44.9, adult. Nutrition f/u. Did not start chair exercises yet. Reports having a difficult time remembering. Has started to reduce phone time at night. Going to bed before midnight now. Set sleep routine on phone for reminder that goes off at 9:45PM. Going to hang out with friends at [employer] tomorrow and has weekly meet up with friends. Has experienced weight gain again. Reports weight is constantly going up and down. Contributes it to every 2-3 weeks getting sweet cravings and having too much/overeating dessert for a few days, then having difficult time getting back on track. States he just needs to get back on track. Discussed the idea of having a planned, portioned out dessert 1-2x/week again to help prevent these cravings and this cycle. Pt declines idea, concerned about this causing weight gain. Provided additional DC counseling and educ on topic. Pt still thinks it would be best to not have any sweets and get back on track with his eating. Pt plans to continue with dietary pattern we have discussed and modified at previous sessions. Reviewed these. Ht: 5 ft 6 in (167.64 cm) Wt: 293 lb Weight History: 08/13/24: 133 kg 03/26/24 122.7 kg 02/25/24: 127.5 kg 01/17/24: 120.9 kg (4.8% weight loss in 3 months) 11/29/23: 123.45 kg (2.8% weight loss in 1 month) 10/25/23: 127 kg 03/22/23: 117.48 kg 11/16/22: 120.769 kg 2021: ranges 144-124 kg Interventions: 1. Discussed activity and barriers, sleep and screen time, set reminder on phone and printed off reminder paper version 2. Discussed contributing factors to weight gain and plans to help avoid overeating of desserts Goals 1. Chair exercises 3x/wk for 20 minutes- we set up reminders on his phone and printed out a reminder sheet. Pt still has ideas of videos to watch for chair exercises and still has chair exercise sheet from previous session. Pt also wanting to do short walk to gate and back, has mentioned this would help him get fresh air and have more energy 2. Sleep by 10:30p 3. Fish 2x/wk and reducing steak to 2x/wk or less Monitoring/Evaluations: diet recall, weight, goals, f/u in 1 month Electronically Signed by: Gerri Graham 08/13/24 16:15 Clinical Dietitian [address] [address]
== END ==
PROVIDERS: Family Provider Family Medicine; PCP Family Medicine; Referring Provider Family Medicine
DX: E66.01 Morbid (severe) obesity due to excess calories (principal); E78.5 Hyperlipidemia, unspecified; I10 Essential (primary) hypertension; I35.0 Nonrheumatic aortic (valve) stenosis; R73.03 Prediabetes; Z68.41 Body mass index [BMI] 40.0-44.9, adult
CPT/HCPCS: 97803

== ENCOUNTER → 2024-10-01 15:21 | Outpatient (CLI) | payer OTHER, SELFPAY ==
--- NOTE | 2024-10-02 12:01 | DIET.OUTPTC ---
Dietary Outpatient Consultation Note Consultation Date: 10/02/2024 Assessment: 53 y M referred to dietitian for E66.01 - Morbid (severe) obesity due to excess calories, E78.5 - Hyperlipidemia, unspecified, I10 - Essential (primary) hypertension, I35.0 - Nonrheumatic aortic (valve) stenosis, R73.03 - Prediabetes, Z68.41 - Body mass index [BMI] 40.0-44.9, adult. Nutrition f/u. Pt walked out to gate yesterday for first time. Reports it felt good mentally. Has started to do low sodium Criss[employer] frozen bowls for some variety for dinners throughout week. Reviewed nutrition facts of these: around 400 cals, 12-15g protein, 45 g CHO, 6 g fiber, and 350 mg Na. 25% SFA at 5 g. Going to bed earlier on work days, by 10:30pm, sleep mode on phone has been helpful. Pt reporting no longer having midday meal/snack on non-work days, notices getting hungrier earlier in evening. Ht: 5 ft 6 in (167.64 cm) Wt: 288.5 lb Weight History: 08/18/24: 131.145 kg 03/26/24 122.7 kg 02/25/24: 127.5 kg 01/17/24: 120.9 kg (4.8% weight loss in 3 months) 11/29/23: 123.45 kg (2.8% weight loss in 1 month) 10/25/23: 127 kg 03/22/23: 117.48 kg 11/16/22: 120.769 kg 2021: ranges 144-124 kg Interventions: 1. Discussed activity and barriers 2. Reviewed meal labels 3. Brainstormed mid-day meal to have on days off and addition of fiber again to breakfast on days off Goals 1. Chair exercises 3x/wk for 20 minutes- we set up reminders on his phone and printed out a reminder sheet. Pt still has ideas of videos to watch for chair exercises and still has chair exercise sheet from previous session. Pt also wanting to do short walk to gate and back, has mentioned this would help him get fresh air and have more energy (pt working on) 2. Sleep by 10:30p (met on workdays) 3. Fish 2x/wk and reducing steak to 2x/wk or less (not completed- no fish pt likes at the store last few times) 4. new- mid-day meal on days off (eggs and fruit, leftovers, or yogurt and berries) 5. new- banana with eggs and turkey breaux on days off by including it in grocery list Monitoring/Evaluations: diet recall, weight, goals, f/u in 6-8 wks Electronically Signed by: Gerri Graham 10/02/24 12:01 Clinical Dietitian [address] [address]
== END ==
LOC: DIET 15:21
PROVIDERS: Family Provider Family Medicine; PCP Family Medicine; Referring Provider Family Medicine
DX: E66.01 Morbid (severe) obesity due to excess calories (principal); E78.5 Hyperlipidemia, unspecified; I10 Essential (primary) hypertension; I35.0 Nonrheumatic aortic (valve) stenosis; R73.03 Prediabetes; Z68.41 Body mass index [BMI] 40.0-44.9, adult; Z71.3 Dietary counseling and surveillance
CPT/HCPCS: 97803

== ENCOUNTER → 2025-01-08 15:35 | Outpatient (CLI) | payer OTHER, SELFPAY ==
--- NOTE | 2025-01-12 14:50 | DIET.OUTPTC ---
Dietary Outpatient Consult Consult Date:01/08/25 Assessment: 53 y M referred to dietitian for E66.01 - Morbid (severe) obesity due to excess calories, E78.5 - Hyperlipidemia, unspecified, I10 - Essential (primary) hypertension, I35.0 - Nonrheumatic aortic (valve) stenosis, R73.03 - Prediabetes, Z68.41 - Body mass index [BMI] 40.0-44.9, adult. Nutrition f/u. Has been working on car lately, so daily walking out to the garage. Still interested in starting chair exercises. Started doing additional frozen meals, latest one creamy pasta and chk and broccoli, unsure the brand. Still going to bed earlier on work days, by 10:30pm, sleep mode on phone has been helpful. Ht: 5 ft 6 in (167.64 cm) Wt: 288.5 lb Weight History: 12/15/24: 138.64 kg (+11.5 kg) 08/18/24: 131.145 kg 03/26/24 122.7 kg 02/25/24: 127.5 kg 01/17/24: 120.9 kg (4.8% weight loss in 3 months) 11/29/23: 123.45 kg (2.8% weight loss in 1 month) 10/25/23: 127 kg 03/22/23: 117.48 kg 11/16/22: 120.769 kg 2021: ranges 144-124 kg Interventions: 1. Discussed activity and barriers 2. Reviewed safeway frequently purchased items in [employer] and discussed switches as needed 3. Reviewed nutrition facts label reading and set up specifics for frozen meals 4. Brainstormed other meal options Goals 1. Chair exercises 2x/wk for 20 minutes- reviewed video options 2. Frozen dish <600 mg Na and <10 g saturated fat and >4g fiber 3. Using frozen trout or salmon to add variety to meals 4. Sub the frozen chk with seasoning and 1000 mg Na for no sodium added one Monitoring/Evaluations: diet recall, weight, goals, f/u in 3 wks Electronically Signed by: Gerri Graham Clinical Dietitian [address] [address]
== END ==
LOC: DIET 15:36
PROVIDERS: Family Provider Family Medicine; PCP Family Medicine
DX: E66.01 Morbid (severe) obesity due to excess calories (principal); E78.5 Hyperlipidemia, unspecified; I10 Essential (primary) hypertension; I35.0 Nonrheumatic aortic (valve) stenosis; R73.03 Prediabetes; Z68.41 Body mass index [BMI] 40.0-44.9, adult; Z71.3 Dietary counseling and surveillance
CPT/HCPCS: 97803

== ENCOUNTER → 2025-02-19 15:12 | Outpatient (CLI) | payer OTHER, SELFPAY ==
--- NOTE | 2025-02-20 09:22 | DIET.OUTPTC ---
Dietary Outpatient Consult Consult Date:02/19/25 Assessment: 53 y M referred to dietitian for E66.01 - Morbid (severe) obesity due to excess calories, E78.5 - Hyperlipidemia, unspecified, I10 - Essential (primary) hypertension, I35.0 - Nonrheumatic aortic (valve) stenosis, R73.03 - Prediabetes, Z68.41 - Body mass index [BMI] 40.0-44.9, adult. Nutrition f/u. Still going out to walk to car garage on days off, doesn't think he's able to quite manage going to the gate yet. Has not started chair exercises, reports no barriers to doing so. Had fish 2x this past week. Trying out different frozen meals and trying to find ones that meet the nutrition label requirements provided to him. Ht: 5 ft 6 in (167.64 cm) Wt: 288.5 lb Weight History: Pt reports not taking recent weight at home 12/15/24: 138.64 kg (+11.5 kg) 08/18/24: 131.145 kg 03/26/24 122.7 kg 02/25/24: 127.5 kg 01/17/24: 120.9 kg (4.8% weight loss in 3 months) 11/29/23: 123.45 kg (2.8% weight loss in 1 month) 10/25/23: 127 kg 03/22/23: 117.48 kg 11/16/22: 120.769 kg 2021: ranges 144-124 kg Interventions: 1. Discussed activity and barriers, provided health belief model counseling, discussed other types of activities 2. Reviewed safeway frequently purchased items in [employer] and discussed switches as needed 3. Discussed increasing protein and fiber content of frozen meals with an additional bag of frozen veg and additional serving of no-sodium frozen chicken and then splitting frozen meal into 2 servings 4. Increasing lunch content for satiety Goals 1. Chair exercises 2x/wk for 20 minutes- reviewed video options 2. Add extra bag of frozen vegs and extra chicken 4-6 oz to frozen meal and split in half for 2 days 3. Try premier protein drink at lunch Goals written down and provided to pt. Monitoring/Evaluations: diet recall, weight, goals, f/u in 4 wks Electronically Signed by: Gerri Graham Clinical Dietitian [address] [address]
== END ==
PROVIDERS: Family Provider Family Medicine; PCP Family Medicine; Referring Provider Family Medicine
DX: E66.01 Morbid (severe) obesity due to excess calories (principal); E78.5 Hyperlipidemia, unspecified; I10 Essential (primary) hypertension; I35.0 Nonrheumatic aortic (valve) stenosis; R73.03 Prediabetes; Z68.41 Body mass index [BMI] 40.0-44.9, adult; Z71.3 Dietary counseling and surveillance
CPT/HCPCS: 97803

== ENCOUNTER → 2025-03-11 08:22 | Outpatient (CLI) | payer OTHER, SELFPAY ==
[2025-03-11 10:01] LABS: Add Manual Diff / Slide Review NO; Hematocrit 43.0 % (41-53); Hemoglobin 14.5 g/dL (13.5-17.5); Lymphocytes Absolute Auto 1600 /uL (1100-4500); Mean Corpuscular HGB Conc 33.8 % (30-36); Mean Corpuscular Hemoglobin 27.2 PG (26-34); Mean Corpuscular Volume 80.7 fL (80-100); Platelet Count 205 X10^3/uL (150-400)
[2025-03-11 10:13] LABS: Hemoglobin A1C% w Est Avg Glu 6.1 % (4.0-6.0)
[2025-03-11 10:28] LABS: Alanine Aminotransferase 55 IU/L (<50); Albumin 3.8 g/dL (3.5-5.0); Albumin Globulin Ratio 1.4 (1.0-2.8); Alkaline Phosphatase 79 U/L (38-126); Blood Urea Nitrogen 23 mg/dL (9-20); Calcium 8.9 mg/dL (8.4-10.2); Carbon Dioxide 28 mmol/L (22-32); Chloride 101 mmol/L (98-107); Cholesterol 134 mg/dL (140-199); Estimated Glomerular Filt Rate > 60 mL/min (>60); Globulin 2.8 g/dL (1.7-4.1); Glucose 121 mg/dL (70-99); HDL Cholesterol 40 mg/dL (40-60); HEMOLYSIS < 15 (0-50); Potassium 3.6 mmol/L (3.4-5.1); Sodium 138 mmol/L (137-145); Total Protein 6.6 g/dL (6.3-8.2); Triglycerides 112 mg/dL (35-150)
[2025-03-11 10:59] LABS: TSH w/ Reflex to FT4 0.87 uIU/mL (0.47-4.68)
== END ==
PROVIDERS: Family Provider Family Medicine; PCP Family Medicine; Referring Provider Family Medicine; Visit Provider Family Medicine
DX: M17.0 Bilateral primary osteoarthritis of knee (principal); I10 Essential (primary) hypertension; G47.33 Obstructive sleep apnea (adult) (pediatric)
CPT/HCPCS: 36415; 80053; 80061; 83036; 84443; 85025

== ENCOUNTER → 2025-03-26 15:06 | Outpatient (CLI) | payer OTHER, SELFPAY ==
--- NOTE | 2025-03-26 16:37 | DIET.OUTPTC ---
Dietary Outpatient Consult Consult Date:03/26/25 Assessment: 53 y M referred to dietitian for E66.01 - Morbid (severe) obesity due to excess calories, E78.5 - Hyperlipidemia, unspecified, I10 - Essential (primary) hypertension, I35.0 - Nonrheumatic aortic (valve) stenosis, R73.03 - Prediabetes, Z68.41 - Body mass index [BMI] 40.0-44.9, adult. Nutrition f/u. Still going out to walk to car garage on days off. Did not do other exercises. Interested in trying Virgil Chi. Diet recall: B-oatmeal maple brown sugar 2 packets on work days (3x/wk) -no work = eggs and turkey sausage L-hardboiled eggs D-healthy choice frozen meals (45 g CHO or less, <600 mg sodium) and 1/2 c extra nonstarchy vegs and no sodium added chicken S-plain leobardo's yogurt with blueberries and cinnamon Ht: 5 ft 6 in (167.64 cm) Wt: 293 lb (pt reported home weight this week) Weight History: 03/16/25: 294 lb (133.64 kg) (-3.6% weight loss in 3 months) 12/15/24: 138.64 kg (+11.5 kg) 08/18/24: 131.145 kg 03/26/24 122.7 kg 02/25/24: 127.5 kg 01/17/24: 120.9 kg (4.8% weight loss in 3 months) 11/29/23: 123.45 kg (2.8% weight loss in 1 month) 10/25/23: 127 kg 03/22/23: 117.48 kg 11/16/22: 120.769 kg 2021: ranges 144-124 kg Interventions: 1. Reviewed diet recalls and discussed swaps for lower CHO content 2. IN counseling for activity 3. Reviewed recent labs and how goals below can help Goals 1. Try virgil chi youtube video 2x/wk +walks out to car 2. Switch to plain oatmeal packet and 1 regular brown sugar packet OR 2 lower sugar brown sugar packets 3. Continue with frozen dinner modifications Goals written down and provided to pt. Monitoring/Evaluations: diet recall, weight, goals, f/u in 4 wks Electronically Signed by: Gerri Graham Clinical Dietitian [address] [address]
== END ==
LOC: DIET 15:06
PROVIDERS: PCP Family Medicine; Referring Provider Family Medicine
DX: E66.01 Morbid (severe) obesity due to excess calories (principal); E78.5 Hyperlipidemia, unspecified; I10 Essential (primary) hypertension; I35.0 Nonrheumatic aortic (valve) stenosis; R73.03 Prediabetes; Z68.41 Body mass index [BMI] 40.0-44.9, adult; Z71.3 Dietary counseling and surveillance
CPT/HCPCS: 97803

== ENCOUNTER → 2025-04-23 15:15 | Outpatient (CLI) | payer OTHER, SELFPAY ==
--- NOTE | 2025-04-23 16:14 | DIET.OUTPTC ---
Dietary Outpatient Consult Consult Date:04/23/25 Assessment: 53 y M referred to dietitian for E66.01 - Morbid (severe) obesity due to excess calories, E78.5 - Hyperlipidemia, unspecified, I10 - Essential (primary) hypertension, I35.0 - Nonrheumatic aortic (valve) stenosis, R73.03 - Prediabetes, Z68.41 - Body mass index [BMI] 40.0-44.9, adult. Nutrition f/u. Yesterday did 1 20 min video of estefani chi. Enjoyed it and plans to try out some other videos as well. Still trying to walk to garage daily as well. Diet recall remains the same, but did change oatmeal. Notes cheating 1-2x/wk. Will see something at store and indulge. Diet recall: B-1 plain oatmeal packet (19gCHO) + 1 brown sugar packet (33gCHO) (3x/wk) -no work = eggs and turkey sausage L-hardboiled eggs D-healthy choice frozen meals (45 g CHO or less, <600 mg sodium) and 1/2 c extra nonstarchy vegs and no sodium added chicken S-plain leobardo's yogurt with blueberries and cinnamon Ht: 5 ft 6 in (167.64 cm) Wt: no new weight, pt has not taken recent weight at home Weight History: 03/16/25: 294 lb (133.64 kg) (-3.6% weight loss in 3 months) 12/15/24: 138.64 kg (+11.5 kg) 08/18/24: 131.145 kg 03/26/24 122.7 kg 02/25/24: 127.5 kg 01/17/24: 120.9 kg (4.8% weight loss in 3 months) 11/29/23: 123.45 kg (2.8% weight loss in 1 month) 10/25/23: 127 kg 03/22/23: 117.48 kg 11/16/22: 120.769 kg 2021: ranges 144-124 kg Interventions: 1. Reviewed diet recalls and discussed swaps for lower CHO content 2. [place] counseling for activity Goals 1. (Continue) Try estefani chi [email or web address] video 2x/wk +walks out to car 2. (Met) Switch to plain oatmeal packet and 1 regular brown sugar packet OR 2 lower sugar brown sugar packets 3. (Met) Continue with frozen dinner modifications 4. (New) Have protein based snack before sweets/junk food (hardboiled eggs/plain yogurt w/ blueberries) Monitoring/Evaluations: diet recall, weight, goals, f/u in Jun post holidays Electronically Signed by: Gerri Graham Clinical Dietitian [address] [address]
== END ==
LOC: DIET 15:15
PROVIDERS: PCP Family Medicine; Referring Provider Family Medicine
DX: E66.01 Morbid (severe) obesity due to excess calories (principal); E78.5 Hyperlipidemia, unspecified; I10 Essential (primary) hypertension; I35.0 Nonrheumatic aortic (valve) stenosis; R73.03 Prediabetes; Z68.41 Body mass index [BMI] 40.0-44.9, adult; Z71.3 Dietary counseling and surveillance
CPT/HCPCS: 97803